=== PATIENT | male | born 1995 | race Caucasian/White ===

== ENCOUNTER 2017-06-29 10:45 | Emergency (ER) | payer SELFPAY ==
[~2017-06-29] VITALS: Ht 182.9 cm; Wt 69.2 kg
[2017-06-29 10:49] VITALS: BP 120/79
--- NOTE | 2017-06-29 10:53 | NUR ---
PT AA&OX4 AT THIS TIME; STEADY GAIT; PT TO LOBBY AWAITING OPEN BED.
--- NOTE | 2017-06-29 11:43 | NUR ---
patient taken to of#2
--- NOTE | 2017-06-29 11:52 | NUR ---
21M BIB FRIEND C/O CONSTIPATION X 2 WEEKS. HX: PT DENIES RX: PT DENIES; DENIES N/V/D; SKIN IS PINK/WARM/DRY; AAOX4 WITH EVEN AND STEADY GAIT; LUNGS CLEAR BL; HR EVEN AND REGULAR; PT DENIES ANY FEVER, CP, SOB, OR COUGH AT THIS TIME; PATIENT STATES PAIN OF 0/10 AT THIS TIME; VSS; PATIENT POSITIONED FOR COMFORT; HOB ELEVATED; BEDRAILS UP X2; BED DOWN. ER MD MADE AWARE OF PT STATUS.
--- NOTE | 2017-06-29 11:53 | NUR ---
DR FATIMA EVALUATING AAO PT
[2017-06-29 12:25] VITALS: BP 112/59
== END 2017-06-29 12:25 | disposition home or self-care (01) ==
LOC: MED 10:45
DX: K59.00 Constipation, unspecified (principal)
CPT/HCPCS: 74000; 99283